=== PATIENT | female | born 1995 | race Caucasian/White ===

== ENCOUNTER 2017-12-05 19:41 | Emergency (ER) | payer MEDICAID, OTHER ==
[2017-12-05] MEDS: BACTRIM 160MG/800MG DS TAB PO (21:00)
[2017-12-05] MEDS: NORCO, ANEXSIA 5/325MG TABLET (HYDROcodone/ACETAMINOPHEN) PO (21:01)
[2017-12-05] MEDS: LIDOCAINE 1% MDV 20ML VIAL SC (21:03)
== END 2017-12-05 21:20 | disposition home or self-care (01) ==
LOC: M ED 19:41
DX: L02.215 Cutaneous abscess of perineum (principal); L03.315 Cellulitis of perineum; F41.9 Anxiety disorder, unspecified
CPT/HCPCS: 10160

== ENCOUNTER 2017-12-08 12:08 | Emergency (ER) | payer MEDICAID ==
[2017-12-08] MEDS ORDERED: ONDANSETRON 4 MG ORAL DISINTEGRATING TAB (Q0162 PER 1MG) As Ordered (13:04)
[2017-12-08] MEDS: NORCO, ANEXSIA 5/325MG TABLET (HYDROcodone/ACETAMINOPHEN) PO (13:04)
[2017-12-08] MEDS: ONDANSETRON 4 MG ORAL DISINTEGRATING TAB (Q0162 PER 1MG) PO (13:05)
[2017-12-08 13:10] LABS: AMORPHOUS SEDIMENT RFX SMALL (NEGATIVE); KETONE, URINE AUTO RFX NEGATIVE (NEGATIVE); NITRITE, URINE AUTO RFX NEGATIVE (NEGATIVE); RBC, URINE AUTO RFX 6 /HPF (0-3); SPECIFIC GRAVITY UR AUTO RFX 1.002 (1.002-1.035); SQUAM EPITHELIAL CELL UR AURFX 1 /HPF (0-6); WBC, URINE AUTO RFX 6 /HPF (0-3)
[2017-12-08 13:12] LABS: LEUKOCYTE ESTERASE UR AUTO RFX TRACE (NEGATIVE)
[2017-12-08 15:32] LABS: CHLAMYDIA DNA AMPLIFICATION NEGATIVE (NEGATIVE); GC DNA AMPLIFICATION NEGATIVE (NEGATIVE)
== END 2017-12-08 14:55 | disposition home or self-care (01) ==
LOC: M ED 12:08
DX: L23.9 Allergic contact dermatitis, unspecified cause (principal)
CPT/HCPCS: Q0162